=== PATIENT | male | born 1960 | race Caucasian/White ===

== ENCOUNTER 2016-06-26 09:22 | Emergency (ER) | payer SELFPAY ==
[2016-06-26 09:35] VITALS: BP 141/79
--- NOTE | 2016-06-26 09:37 | ED Physician Documentation ---
Fall - HISTORIAN Historian: patient - HPI Stated Complaint: right knee, left ankle pain Chief Complaint: Fall Additional Information: Sitting watching tv, 2 beers on board, stood up and passed out. Occurred evening of 06/24. Doesn't know how he landed. [place] ok. Now has right knee and left ankle pain and swelling. Has been taking aleve. Took one of 's oxycodone tabs at 0600. Has been walking with discomfort. Where: home - ROS CONST: no problems NEURO: other (at baseline, per patient). denies: dizziness - PAST HX Past History: other (HTN, arthritis) Allergies/Adverse Reactions: Allergies Allergy/AdvReac Type Severity Reaction Status Date / Time No Known Allergies Allergy Verified 06/26/16 09:26 Home Medications: Ambulatory Orders Medication Instructions Recorded Lisinopril [Zestril] 20 mg PO DAILY 06/26/16 Meloxicam [Mobic] 7.5 mg PO BID 06/26/16 - SOCIAL HX Smoking History: non-smoker Alcohol Use: other (12 beers/month) - FAMILY HX Family History: no significant history - VITAL SIGNS Vital Signs: Vital Signs Temp Pulse Resp BP Pulse Ox 98.2 F 66 19 141/79 98 06/26/16 09:27 06/26/16 09:27 06/26/16 09:27 06/26/16 09:27 06/26/16 09:27 - REVIEWED ASSESSMENTS Nursing Assessment Reviewed: Yes Vitals Reviewed: Yes Progress - Progress Progress: Left ankle 3 views Exam: June 26, 2016. Clinical history: Fall with ankle pain. Findings: There is no evidence of acute fracture or dislocation. The tibiotalar alignment is maintained. Calcaneal spurring is noted. There is slight bilateral ankle swelling. Impression: Slight bilateral ankle swelling without fracture or dislocation. Electronically signed on Jun 26, 2016 9:59:09 AM LAND ACQUISITION ANALYST by: Fredy Roger Right knee 2 views Exam: June 26, 2016. Clinical history: Fall with right knee pain. Findings: There is no evidence of acute fracture or dislocation. A joint effusion is present. The proximal tibia and fibula are normal. The patella is in appropriate relationship with the distal femur. Impression: No acute fracture or dislocation. A right knee joint effusion. Electronically signed on Jun 26, 2016 10:01:52 AM LAND ACQUISITION ANALYST by: Fredy Roger ED Results Lab/Radiology - Orders Orders: ED Orders Category Date Time Status ANKLE 3 VIEWS OR MORE [RAD] Stat Exams 06/26/16 Ordered KNEE 1 OR 2 VIEWS [RAD] Stat Exams 06/26/16 Ordered Fall Physical Exam - Physical Exam General Appearance: alert, mild distress Head: no obvious injury Neck: painless ROM Eye: ADILSON ENT: nml external inspection Resp/CVS: no resp. distress Neuro: CN's nml as tested, sensation nml, motor nml Skin: color nml, warm, dry, other (well healed surgical scar L lower leg, proximal medial.) Back: other (fluid movements w/o pain) Extremities: other (R knee with pain at medial joint line and with flexion. No ligamentous instability. L ankle diffusely swollen and tender medially. Gregory DP and PT 2+. No discoloration. ) Joint: antalgic gait Discharge Clincal Impression: Strain of right knee Left ankle sprain Qualifiers: Encounter type: initial encounter Involved ligament of ankle: unspecified ligament Qualified Code(s): S93.402A - Sprain of unspecified ligament of left ankle, initial encounter Additional Instructions: Ice to the sore areas for 30 minutes of each hour you are awake for 5 days. Two Aleve every 12 hours with food in your stomach for a week. See your provider if you are no better in 2 weeks. Home Medications: Ambulatory Orders Lisinopril [Zestril] 20 mg PO DAILY 06/26/16 Meloxicam [Mobic] 7.5 mg PO BID 06/26/16 Condition: Good Disposition: 01 HOME, SELF-CARE Decision to Admit: NO Decision Time: 10:07
--- NOTE | 2016-06-26 10:02 | Diagnostic Imaging Report ---
[facility] [address] [facility].[address] [address] Report Submission Date: Jun 26, 2016 9:59:09 AM CONCENTRATOR OPERATOR Patient Study Name: MELODY LAWTON Date: Jun 26, 2016 9:34:06 AM CONCENTRATOR OPERATOR Modality Type: CR Gender: M Description: LOWER EXTREMITY : 58 Institution: [facility] Physician: CHRISTIANO LAWRENCE - ER Left ankle 3 views Exam: June 26, 2016. Clinical history: Fall with ankle pain. Findings: There is no evidence of acute fracture or dislocation. The tibiotalar alignment is maintained. Calcaneal spurring is noted. There is slight bilateral ankle swelling. Impression: Slight bilateral ankle swelling without fracture or dislocation. Electronically signed on Jun 26, 2016 9:59:09 AM CONCENTRATOR OPERATOR by: Fredy UREÑA
--- NOTE | 2016-06-26 10:03 | Diagnostic Imaging Report ---
[facility] [address] [facility].[address] [address] Report Submission Date: Jun 26, 2016 10:01:52 AM RUGBY LEAGUE FOOTBALLER Patient Study Name: MELODY LAWTON Date: Jun 26, 2016 9:39:53 AM RUGBY LEAGUE FOOTBALLER Modality Type: CR Gender: M Description: LOWER EXTREMITY : 58 Institution: [facility] Physician: CHRISTIANO LAWRENCE - ER Right knee 2 views Exam: June 26, 2016. Clinical history: Fall with right knee pain. Findings: There is no evidence of acute fracture or dislocation. A joint effusion is present. The proximal tibia and fibula are normal. The patella is in appropriate relationship with the distal femur. Impression: No acute fracture or dislocation. A right knee joint effusion. Electronically signed on Jun 26, 2016 10:01:52 AM RUGBY LEAGUE FOOTBALLER by: Fredy UREÑA
== END 2016-06-26 10:20 | disposition home or self-care (01) ==
LOC: ED 09:22
DX: S96.912A Strain of unspecified muscle and tendon at ankle and foot level, left foot, initial encounter (principal); S83.91XA Sprain of unspecified site of right knee, initial encounter; W19.XXXA Unspecified fall, initial encounter; Y93.9 Activity, unspecified; Y99.9 Unspecified external cause status
CPT/HCPCS: 73560; 73610; 99283

== ENCOUNTER 2016-09-18 18:20 | Emergency (ER) | payer SELFPAY ==
[2016-09-18] MEDS ORDERED: 0.9 % SODIUM CHLORIDE 1,000 ML IV ONE (18:38)
[2016-09-18] MEDS ORDERED: ASPIRIN 81 MG CHEW TAB PO ONE (18:42)
[2016-09-18] MEDS ORDERED: DILTIAZEM HCL 125 MG/25ML VIAL ONE (18:43)
[2016-09-18] MEDS ORDERED: 0.9 % SODIUM CHLORIDE 100 ML IV ONE (18:44)
[2016-09-18] MEDS ORDERED: DILTIAZEM HCL 25 MG/ 5ML VIAL IVP ONE (18:45)
[2016-09-18] MEDS ORDERED: DILTIAZEM HCL 125 MG in 0.9 % SODIUM CHLORIDE 100 ML IV STA (18:46)
[2016-09-18 19:11] LABS: BASOPHILS % 0.5 (0.0-1.5); EOSINOPHILS % 0.9 % (0.0-6.8); MEAN CORPUSCULAR HEMOGLOBIN 31.3 pg (28.0-34.0); MEAN CORPUSCULAR VOLUME 88.3 fl (80.0-100.0); MONOCYTES % 6.3 % (0.0-11.0); NEUTROPHILS # 7.9 # k/uL (1.4-7.7)
[2016-09-18 19:29] LABS: eGFR (African) 54; eGFR (Non-African) 44
--- NOTE | 2016-09-18 20:55 | ED Physician Documentation ---
Chest Pain - HISTORIAN Historian: patient, spouse - HPI Chief Complaint: Chest Pain Additional Information: onset tachycardia approx 4 hrs ago then fast heart but better for awhile now worse Onset: hours Timing: sudden onset (had syncope at onset then better for awhile) Duration: constant Last known Well Date: 09/18/16 Last Known Well Time: 12:30 Severity: moderate (sob chest tightness) Quality: pressure, tightness. denies: stabbing, like prior RI Chest Pain Signs/Symptoms: denies: nausea, vomiting, diaphoresis - ROS CONST: none (chronic pain patient dt back and djd) NEURO/PSYCH: anxiety - PAST HX RI risk factors: hypertension, A-Fib Neuro deficit: none GI disease: none Surgeries/Procedures: other (foot) Allergies/Adverse Reactions: Allergies Allergy/AdvReac Type Severity Reaction Status Date / Time No Known Allergies Allergy Verified 06/26/16 09:26 Home Medications: Ambulatory Orders Medication Instructions Recorded Lisinopril [Zestril] 20 mg PO DAILY 06/26/16 Hydrochlorothiazide [Hydrodiuril] 25 mg PO DAILY 09/18/16 - SOCIAL HX Smoking History: non-smoker, quit greater than 1 year (30) Alcohol Use: rarely Drug Use: none - FAMILY HX Family HX: none - VITAL SIGNS Vital Signs: Vital Signs Temp Pulse Resp BP Pulse Ox 141/79 06/26/16 10:20 - REVIEWED ASSESSMENTS Nursing Assessment Reviewed: Yes Vitals Reviewed: Yes ED Results Lab/Radiology - Radiology Radiology Impressions: cxr=no acute disease - Orders Orders: ED Orders Category Date Time Status Continuous EKG monitoring Q30M Care 09/18/16 18:42 Ordered Continuous Pulse Oximetry Q30M Care 09/18/16 18:[address] Saline Lock/IV NOW Care 09/18/16 18:42 Ordered CHEST 1 VIEW [RAD] Stat Exams 09/18/16 18:42 Ordered CBC/PLATELET/DIFF Routine Lab 09/18/16 18:42 Ordered CKMB Stat Lab 09/18/16 Ordered CMP Routine Lab 09/18/16 18:42 Ordered CREATINE KINASE Routine Lab 09/18/16 18:42 Ordered TROPONIN I (cTnI) Stat Lab 09/18/16 18:42 Ordered 0.9 % Sodium Chloride [Normal Saline] 1,000 ml Med 09/18/16 18:38 Discontinued IV .STK-MED 0.9 % Sodium Chloride [Sodium Chloride] 100 ml Med 09/18/16 18:44 Discontinued IV .STK-MED Aspirin Med 09/18/16 18:42 Once 324 mg PO NOW ONE DILTIAZEM HCL 125 MG in 0.9 % SODIUM CHLORIDE @ 15 MLS/ Med 09/18/16 18:46 Ordered HR(125ml) Diltiazem HCl [Cardizem] 125 mg 0.9 % Sodium Chloride [Sodium Chloride] 100 ml IV 1T Diltiazem HCl [Cardizem] Med 09/18/16 18:45 Once 10 mg IVP STAT ONE Diltiazem HCl [Cardizem] Med 09/18/16 18:43 Discontinued 125 mg .ROUTE .STK-MED ONE Oxygen Daily Oxygen 09/18/16 18:45 Ordered EKG WITH COMPARISON Stat Ther 09/18/16 18:42 Ordered Chest Pain Physical Exam - EXAM General Appearance: mild distress EENT: eye inspection normal Neck: nml inspection Respiratory: nml breath sounds CVS: frequent extrasystoles. No: reg. rate & rhythm Abdomen: soft, non-tender Skin: normal color, diaphoresis. No: cyanosis, jaundice, mottled Extremities: non-tender, normal range of motion Neuro: oriented X3, motor nml, sensation nml, mood/affect nml Discharge Clincal Impression: rapid uncontrolled atrial fibrillation, hyper glycemia, hypo kalemia, Azotemia Referrals: Primary Doctor,No [Primary Care Provider] - 2 Days Home Medications: Ambulatory Orders Lisinopril [Zestril] 20 mg PO DAILY 06/26/16 Hydrochlorothiazide [Hydrodiuril] 25 mg PO DAILY 09/18/16 Comments: home rx for cardizem see pcp very soon-fresh fruit recheck bs inc water recheck for azotemia Condition: Good Disposition: 01 HOME, SELF-CARE Decision to Admit: NO Decision Time: 20:54
[2016-09-18 21:49] VITALS: BP 103/72
--- NOTE | 2016-09-19 05:26 | Diagnostic Imaging Report ---
JOZEF DELEON [facility] [address] [facility].[address] [address] Report Submission Date: September 18, 2016 7:15:52 PM CDT Patient Study Name: MELODY ROTH Date: September 18, 2016 6:51:49 PM CDT Modality Type: CR Gender: M Description: CHEST : 58 Institution: [facility] Physician: JOZEF DELEON Portable chest History: Chest pain and syncope Findings: The lungs are clear. No pleural effusions are observed. Heart size and pulmonary vascularity are normal. Osseous structures are unremarkable. Impression: Normal chest. Electronically signed on September 18, 2016 7:15:52 PM CDT by: Vidal UREÑA
== END 2016-09-18 21:07 | disposition home or self-care (01) ==
LOC: ED 18:20
DX: I48.91 Unspecified atrial fibrillation (principal); R73.9 Hyperglycemia, unspecified; E87.6 Hypokalemia; R79.89 Other specified abnormal findings of blood chemistry
CPT/HCPCS: 71010; 80053; 82550; 82553; 84484; 85025; 93005; J3490; J7030; 96365; 99283; 99284; S1016

== ENCOUNTER 2017-03-27 19:10 | Emergency (ER) | payer SELFPAY ==
--- NOTE | 2017-03-27 19:33 | ED Physician Documentation ---
General Adult - HISTORIAN Historian: patient - HPI Stated Complaint: Right knee, hip, and back pain Chief Complaint: Lower Extremity Injury Additional Information: He denies any injury and pain is on and off he reports he has not been in to see his PCP or pain management dr for " a while" however he does have an appt with PCP next week He does get narcotic pain medication from his pain management for back pain and he has been out for a few weeks He does not note the pain is different denies any injury No swelling no redness He was able to walk with a cane into the unit Onset: other (3 weeks ) Timing: still present Severity: moderate Last known Well Code/Unknown Code: Unknown - ROS CONST: no problems. denies: fever, sweating EYES/ENT: none CVS/RESP: none GI/: none MS/SKIN/LYMPH: none. denies: calf pain, leg swelling, rash NEURO/PSYCH: denies: headache - PAST HX Past History: other (he has a issue with his liver he is not sure of and chronic back pain ) Surgeries/Procedures: none Immunizations: referred to PCP Allergies/Adverse Reactions: Allergies Allergy/AdvReac Type Severity Reaction Status Date / Time No Known Allergies Allergy Verified 03/27/17 19:27 Home Medications: Ambulatory Orders Medication Instructions Recorded Lisinopril [Zestril] 20 mg PO DAILY 06/26/16 Hydrochlorothiazide [Hydrodiuril] 25 mg PO DAILY 09/18/16 - SOCIAL HX Smoking History: non-smoker Alcohol Use: none Drug Use: none - FAMILY HX Family History: No - VITAL SIGNS Vital Signs: Vital Signs Temp Pulse Resp BP Pulse Ox 98.6 F 96 H 18 106/68 97 03/27/17 19:10 03/27/17 19:10 03/27/17 19:10 03/27/17 19:10 03/27/17 19:10 - REVIEWED ASSESSMENTS Nursing Assessment Reviewed: Yes Vitals Reviewed: Yes General Adult Physical Exam - PHYSICAL EXAM GENERAL APPEARANCE: no distress EENT: eye inspection normal NECK: normal inspection RESPIRATORY: no resp distress, chest non-tender, breath sounds normal CVS: reg rate & rhythm, heart sounds normal, equal pulses, no murmur ABDOMEN: soft, normal bowel sounds SKIN: warm/dry, normal color EXTREMITIES: non-tender, normal range of motion, no evidence of injury, no edema NEURO: oriented X3, CN's nml as tested, motor nml Discharge Clincal Impression: Pain Referrals: Primary Doctor,No [Primary Care Provider] - 2 Days Comments: He was able to walk without assistance (did use a walker) out of unit States pain is "much better" Condition: Stable Disposition: 01 HOME, SELF-CARE Decision to Admit: NO Date of Decison to Admit: 03/27/17 Decision Time: 19:50
[2017-03-27] MEDS ORDERED: KETOROLAC TROMETHAMINE 60 MG/2 ML VIAL IM ONE (19:37)
[2017-03-27] MEDS ORDERED: ORPHENADRINE CITRATE 60 MG/2ML IM ONE (19:37)
[2017-03-27 20:07] VITALS: BP 86/50
== END 2017-03-27 19:55 | disposition home or self-care (01) ==
LOC: ED 19:10
DX: R52 Pain, unspecified (principal)
CPT/HCPCS: J1885; J2360; 96372; 99283

== ENCOUNTER 2017-04-05 21:03 | Emergency (ER) | payer SELFPAY ==
--- NOTE | 2017-04-05 21:23 | ED Physician Documentation ---
General Adult - HISTORIAN Historian: patient - HPI Stated Complaint: right hip and leg pain Chief Complaint: General Adult Onset: hours Timing: still present Severity: moderate Further Comments: yes (Pt is a 57 yo male with pain in his R LE, from his knee to his hip and lower back. Pt has hx significant fall injury years ago, and has intermittent episodes of this pain. Pain today is similar to other exacerbations. Pt has f/u appt with pcp tomorrow.) - ROS CONST: no problems EYES/ENT: none CVS/RESP: none GI/: none MS/SKIN/LYMPH: other (R LE pain) - PAST HX Past History: hypertension, other (chronic back pain; "liver issue".) Allergies/Adverse Reactions: Allergies Allergy/AdvReac Type Severity Reaction Status Date / Time No Known Allergies Allergy Verified 04/05/17 21:20 Home Medications: Ambulatory Orders Medication Instructions Recorded Lisinopril [Zestril] 20 mg PO DAILY 06/26/16 Hydrochlorothiazide [Hydrodiuril] 25 mg PO DAILY 09/18/16 - SOCIAL HX Smoking History: non-smoker - FAMILY HX Family History: No - VITAL SIGNS Vital Signs: Vital Signs Temp Pulse Resp BP Pulse Ox 97.5 F L 92 H 22 109/79 98 04/05/17 21:13 04/05/17 21:13 04/05/17 21:13 04/05/17 21:13 04/05/17 21:13 - REVIEWED ASSESSMENTS Nursing Assessment Reviewed: Yes Vitals Reviewed: Yes Progress - Progress Progress: Toradol 60 mg IM Norflex 60 mg IM improved General Adult Physical Exam - PHYSICAL EXAM GENERAL APPEARANCE: moderate distress NECK: normal inspection, supple RESPIRATORY: no resp distress, chest non-tender, breath sounds normal CVS: reg rate & rhythm, heart sounds normal BACK: normal inspection, other (paraspinal lumbar spasm) SKIN: warm/dry, normal color EXTREMITIES: tenderness (R hip/R knee) NEURO: oriented X3, motor nml, sensation nml Discharge Clincal Impression: musculoskeletal pain Referrals: Primary Doctor,No [Primary Care Provider] - Condition: Stable Disposition: 01 HOME, SELF-CARE Decision to Admit: NO Decision Time: 22:05
[2017-04-05] MEDS: KETOROLAC TROMETHAMINE 60 MG/2 ML VIAL IM ONE (21:29)
[2017-04-05] MEDS: ORPHENADRINE CITRATE 60 MG/2ML IM ONE (21:29)
[2017-04-05] MEDS: ORPHENADRINE CITRATE 60 MG/2ML ONE (21:30)
[2017-04-05] MEDS: KETOROLAC TROMETHAMINE 60 MG/2 ML VIAL ONE (21:30)
[2017-04-05 21:32] VITALS: BP 109/79
== END 2017-04-05 22:07 | disposition home or self-care (01) ==
LOC: ED 21:03
DX: M79.1 Myalgia (principal)
CPT/HCPCS: J1885; J2360; 96372; 99283

== ENCOUNTER 2017-04-09 18:58 | Emergency (ER) | payer OTHER ==
--- NOTE | 2017-04-09 19:02 | ED Physician Documentation ---
General Adult - HISTORIAN Historian: patient - HPI Stated Complaint: knee pain Chief Complaint: Lower Extremity Problem Onset: other (this is an ongoing issue no new injury ) Timing: still present Severity: moderate Further Comments: yes (knee pain that has been ongoing for "a long time" he has been seen "a lot" per his report here in the ER and he did see his PCP and was told due to her being an QUENCHING CAR OPERATOR she could not prescribe pain meds. He states his pain is a 8-9/10 currently. No new injury pain is the exact same as it has been per his report. He states everytime he comes here he gets "a few days relief" but states "that is not enough" He does have an appt with Pain management on Apr 19 and he is going for "xrays" before that appt. He walked into the room without assitance) - ROS CONST: no problems CVS/RESP: none MS/SKIN/LYMPH: none NEURO/PSYCH: denies: headache - PAST HX Past History: other (HTN, Chronic pain ) Other History: none Surgeries/Procedures: other (orthopedic ) Immunizations: referred to PCP Allergies/Adverse Reactions: Allergies Allergy/AdvReac Type Severity Reaction Status Date / Time No Known Allergies Allergy Verified 04/09/17 19:11 Home Medications: Ambulatory Orders Medication Instructions Recorded Lisinopril [Zestril] 20 mg PO DAILY 06/26/16 Hydrochlorothiazide [Hydrodiuril] 25 mg PO DAILY 09/18/16 - SOCIAL HX Smoking History: cigarettes Alcohol Use: none Drug Use: none - FAMILY HX Family History: No - VITAL SIGNS Vital Signs: Vital Signs Temp Pulse Resp BP Pulse Ox 109/79 04/05/17 21:13 - REVIEWED ASSESSMENTS Nursing Assessment Reviewed: Yes Vitals Reviewed: Yes General Adult Physical Exam - PHYSICAL EXAM GENERAL APPEARANCE: no distress EENT: eye inspection normal NECK: normal inspection RESPIRATORY: no resp distress, chest non-tender, breath sounds normal CVS: reg rate & rhythm, heart sounds normal, equal pulses, no murmur ABDOMEN: soft SKIN: warm/dry, normal color EXTREMITIES: non-tender, other (Painful ROM on right knee per pt. He is able to bear weight. No swelling no redness ) NEURO: oriented X3, CN's nml as tested, motor nml Discharge Clincal Impression: Strain of right knee Qualifiers: Encounter type: subsequent encounter Qualified Code(s): S86.911D - Strain of unspecified muscle(s) and tendon(s) at lower leg level, right leg, subsequent encounter Referrals: Primary Doctor,No [Primary Care Provider] - 2 Days Condition: Stable Disposition: 01 HOME, SELF-CARE Decision to Admit: NO Date of Decison to Admit: 04/09/17 Decision Time: 19:24
[2017-04-09] MEDS ORDERED: KETOROLAC TROMETHAMINE 60 MG/2 ML VIAL IM ONE (19:18)
[2017-04-09] MEDS ORDERED: ORPHENADRINE CITRATE 60 MG/2ML IM ONE (19:18)
[2017-04-09 19:24] VITALS: BP 116/83
[2017-04-09] MEDS ORDERED: CYCLOBENZAPRINE HCL 5 MG TABLET PO ONE (19:44)
== END 2017-04-09 19:55 | disposition home or self-care (01) ==
LOC: ED 18:58
DX: S86.911D Strain of unspecified muscle(s) and tendon(s) at lower leg level, right leg, subsequent encounter (principal); X58.XXXA Exposure to other specified factors, initial encounter; Y93.9 Activity, unspecified; Y99.9 Unspecified external cause status
CPT/HCPCS: 96372; 99283; J1885

== ENCOUNTER 2017-04-28 20:51 | Emergency (ER) | payer OTHER ==
--- NOTE | 2017-04-28 21:03 | ED Physician Documentation ---
General Adult - HISTORIAN Historian: patient - HPI Stated Complaint: knee pain Chief Complaint: Lower Extremity Problem Onset: other (this is a chronic issue no new pain right knee pain ) Timing: still present Severity: moderate Further Comments: yes (Mr Chambers has known knee pain. He has an appt with pain management. He states the pain med helps and then "wears off in a few days" He states the pain is the same pain same location same character as always. Denies any recent injury Denies any redness or pain to touch) Last known Well Code/Unknown Code: Unknown - ROS CONST: no problems - PAST HX Past History: other (HTN) Surgeries/Procedures: other Immunizations: referred to PCP Allergies/Adverse Reactions: Allergies Allergy/AdvReac Type Severity Reaction Status Date / Time No Known Allergies Allergy Verified 04/28/17 21:32 Home Medications: Ambulatory Orders Medication Instructions Recorded Lisinopril [Zestril] 20 mg PO DAILY 06/26/16 Hydrochlorothiazide [Hydrodiuril] 25 mg PO DAILY 09/18/16 - SOCIAL HX Smoking History: cigarettes Alcohol Use: none Drug Use: none - FAMILY HX Family History: No - VITAL SIGNS Vital Signs: Vital Signs Temp Pulse Resp BP Pulse Ox 116/83 04/09/17 19:57 - REVIEWED ASSESSMENTS Nursing Assessment Reviewed: Yes Vitals Reviewed: Yes General Adult Physical Exam - PHYSICAL EXAM GENERAL APPEARANCE: mild distress (in room moaning -) EENT: eye inspection normal CVS: reg rate & rhythm, heart sounds normal ABDOMEN: soft, normal bowel sounds SKIN: warm/dry, normal color EXTREMITIES: non-tender, normal range of motion, no edema, other (Pain with standing right knee lateral to patella and directly above. No injury noted ) NEURO: oriented X3, CN's nml as tested Discharge Clincal Impression: Pain Referrals: Primary Doctor,No [Primary Care Provider] - 2 Days Additional Instructions: Follow up with pain management Ice Rest Take OTC meds for pain Return for any increase or concern in symptoms Condition: Stable Disposition: 01 HOME, SELF-CARE Decision to Admit: NO Date of Decison to Admit: 04/28/17 Decision Time: 21:16
[2017-04-28] MEDS: methylPREDNISolone ACETATE 40 MG/ML VIAL IM ONE (21:20)
[2017-04-28] MEDS: KETOROLAC TROMETHAMINE 60 MG/2 ML VIAL IM ONE (21:20)
[2017-04-28 21:36] VITALS: BP 97/76
== END 2017-04-28 21:30 | disposition home or self-care (01) ==
LOC: ED 20:51
DX: M25.561 Pain in right knee (principal)
CPT/HCPCS: J1030; J1885; 99282

== ENCOUNTER 2017-05-08 16:26 | Emergency (ER) | payer OTHER ==
--- NOTE | 2017-05-08 16:30 | ED Physician Documentation ---
Lower Extremity Problem - HISTORIAN Historian: patient - HPI Stated Complaint: knee pain Chief Complaint: Lower Extremity Problem Location of Injury: R knee Onset: other (years ) Timing: still present Duration: constant Recent Injury: No Where: home Severity: moderate Quality: pain. denies: swelling, tenderness, numbness, tingling Exacerbated By: walking, movement Relieved By: nothing Associated Symptoms: denies: chest pain, shortness of breath, rapid heart rate, fainting Further Comments: yes (Mr Chambers has been to the ER several times for the knee pain. He states his PCP (who is a FOREIGN BROADCAST SPECIALIST) will not prescribe him anything stronger than Ibuprofen which he reports does not help his pain. He denies any new injury. Pain is the "same as always" . Rates the pain at at 6-8 on 1/10 scale. He is able to walk into exam room without incident. He states he has "been to every dr since last visit on 04.28.17" States he has seen his PCP (Sangeeta Ackerman ) and a Pain management (in [facility]) and a Pyschatrist (in [place]) He states "no one can decide if the pain is in my knee or my head" Attemt to Call Sangeeta's office she was already gone for the day. The patient does smell of alcohol and he states he has had some beers today) - ROS CONST: no problems MS/SKIN/LYMPH: denies: calf pain, neck pain CVS/RESP: denies: chest pain, shortness of breath, cough GI/: denies: problems urinating - PAST HX Past History: other (Chronic knee pain ) Allergies/Adverse Reactions: Allergies Allergy/AdvReac Type Severity Reaction Status Date / Time No Known Allergies Allergy Verified 05/08/17 16:51 Home Medications: Ambulatory Orders Medication Instructions Recorded Lisinopril [Zestril] 20 mg PO DAILY 06/26/16 Hydrochlorothiazide [Hydrodiuril] 25 mg PO DAILY 09/18/16 Methylprednisolone [Medrol] 4 mg PO D #1 tab.ds.pk 05/08/17 - SOCIAL HX Smoking History: cigarettes Alcohol Use: none Drug Use: none - FAMILY HX Family History: none - VITAL SIGNS Vital Signs: Vital Signs Temp Pulse Resp BP Pulse Ox 97.5 F L 95 H 20 101/69 98 05/08/17 16:33 05/08/17 17:14 05/08/17 17:14 05/08/17 17:14 05/08/17 17:14 - REVIEWED ASSESSMENTS Nursing Assessment Reviewed: Yes Vitals Reviewed: Yes Lower Extremity Problem - EXAM General Appearance: no distress Hips: right hip: bone tenderness, pain, bilateral hip: non-tender, normal inspection, normal range of motion, no evidence of injury, deformity, ecchymosis , limited range of motion, nodules, soft tissue tenderness, swelling Neuro/Tendon: normal sensation EENT: eye inspection normal RESPIRATORY: no resp distress, chest non-tender, breath sounds normal CVS: reg rate & rhythm, heart sounds normal, equal pulses JOINT: joints nml VASCULAR: no vascular compromise NEURO/PSYCH: oriented X3, CN's nml as tested SKIN: warm/dry, normal color BACK: normal inspection Discharge Clincal Impression: Pain Prescriptions: Methylprednisolone [Medrol] 4 mg PO D #1 tab.ds.pk Referrals: Primary Doctor,No [Primary Care Provider] - 2 Days Comments: Medrol dose pack for aide in inflammation Follow up with PCP and pain management Ice if needed Condition: Stable Disposition: 01 HOME, SELF-CARE Decision to Admit: NO Date of Decison to Admit: 05/08/17 Decision Time: 17:07
[2017-05-08 17:15] VITALS: BP 101/69
== END 2017-05-08 17:14 | disposition home or self-care (01) ==
LOC: ED 16:26
DX: M25.561 Pain in right knee (principal)
CPT/HCPCS: 99282; 99283

== ENCOUNTER 2018-04-17 08:56 | Outpatient (CLI) | payer OTHER ==
--- NOTE | 2018-04-27 10:57 | HISTORY AND PHYSICAL REPORT ---
HISTORY OF PRESENT ILLNESS: I had the opportunity of seeing Adan Chambers today as an outpatient at [facility]. Mr. Chambers is a very pleasant 58-year-old white male who presents with severe left anterior thigh pain of 1 year duration. He tells me that the symptoms began about a year ago without accident or injury. He says over the last 6 months they have been getting progressively worse. He was seen by Dr. Vigil sometime earlier this year and an MRI of the lumbar spine was obtained in June of 2017 at [facility] which revealed an extruded left paracentral disc associated with neuroforaminal narrowing. He did not bring the disk today. He denies pain on the right. He denies symptoms of incontinence of bowel or bladder. He denies weakness. He says the symptoms are worse over the course of the day and worse with standing, bending, walking, and twisting. He can have severe pain while sitting. He has symptoms that are consistent with radiculitis over the left L4 distribution. PAST MEDICAL HISTORY: 1. History of hypertension. 2. Chronic pain. 3. Lumbar radiculitis. PAST SURGICAL HISTORY: 1. Lower left leg surgery. 2. Right foot surgery. 3. Tonsillectomy. DAILY MEDICATIONS: 1. Lisinopril 20 mg daily. 2. HCTZ 25 mg daily. 3. Hydrocodone 5/325 mg p.r.n. None for the last 6 months. ALLERGIES: No known drug allergies. SOCIAL HISTORY: He currently chews tobacco. He drinks approximately 3 alcoholic beverages per day. Denies recreational drugs. He has been for 35 years. He has 3 children. He completed his GED. He is disabled for an unknown reason. FAMILY HISTORY: Family history includes his father with heart disease and cancer. Mother with heart disease and diabetes. REVIEW OF SYSTEMS: In the last month or so, he has no complaints. His pain is worsened with lying, standing, bending, sitting, walking, twisting, getting up from a chair, cough, sneeze, sexual activity, changes in weather, cold, heat, and in any position for too long. Nothing seems to improve his pain. PHYSICAL EXAMINATION: Vital Signs: BP: 130/74, P: 80, R: 20, Oxygen saturation is 98% on room air. General: The patient is well nourished, well developed, and in no apparent distress. Awake, alert, and oriented. HEENT: Pupils are equal, round, and reactive to light and accommodation. Extraocular movements intact. No facial droop. Neck: There is full range of motion of the cervical spine. No evidence of adenopathy. Thyroid is nontender, not enlarged. Carotids are without bruits. Chest: Clear to auscultation bilaterally. Normal chest excursion. Heart: Regular rate and rhythm without murmur. Abdomen: Benign. Normoactive bowel sounds. Motor/sensory: Intact in the upper and lower extremities. Moves all extremities freely. Extremities: There is a positive left straight leg raise. There is a markedly positive left femoral nerve stretch. Deep tendon reflexes are 1/4 on the left patellar tendon and 2/4 on the right patellar tendon. Strength is 5/5 and equal in flexion and extension of the lower extremities. 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 PLAN: I recommended Mr. Chambers obtain a copy of his MRI films from [facility] and I will follow him up for an L4-L5 epidural injection. We could consider transforaminal nerve root block and could consider a surgical referral. He is satisfied with this plan, and I will follow him up in the near future. NIRANJAN
== END 2018-04-17 09:30 ==
LOC: OUT 08:56
PROVIDERS: ATTEND Anesthesiology Pain Medicine
DX: M51.16 Intervertebral disc disorders with radiculopathy, lumbar region (principal); Z72.0 Tobacco use
CPT/HCPCS: 99204